=== PATIENT | female | born 1995 ===

== ENCOUNTER 2016-11-14 09:29 | Emergency (ER) | payer BC ==
[2016-11-14 10:11] VITALS: BMI 22.6
[2016-11-14 10:13] VITALS: BP 125/47; PULSE 90; RESP 18; TEMP 98; O2SAT 100
--- NOTE | 2016-11-14 10:55 | ED PDOC ---
Upper Extremity Pain/Injury Time Seen by Provider: 11/14/16 10:20 Chief Complaint (Nursing): Finger,Hand,&Wrist Chief Complaint (Provider): R 4th finger pain History Per: Patient Additional Complaint(s): pt c/o R 4th finger pain on waking this morning. states she went to bed w/o pain. denies fall or injury. c/o numbness, tingling, decreased ROM. Past Medical History Reviewed: Historical Data, Nursing Documentation, Vital Signs Vital Signs: Last Vital Signs Temp 98.0 F 11/14/16 10:12 Pulse 90 11/14/16 10:12 Resp 18 11/14/16 10:12 BP 125/47 L 11/14/16 10:12 Pulse Ox 100 11/14/16 10:12 - Medical History PMH: Anemia - Surgical History Surgical History: - Family History Family History: States: No Known Family Hx - Living Arrangements Living Arrangements: With Family - Social History Current smoker - smoking cessation education provided: No Alcohol: None Drugs: Denies - Immunization History Hx Tetanus Toxoid Vaccination: No Hx Influenza Vaccination: No Hx Pneumococcal Vaccination: No - Home Medications Home Medications: Ambulatory Orders Medication Instructions Recorded Ciprofloxacin/Ciprofloxa HCl 500 mg PO BID #14 ter 02/05/14 [Ciprofloxacin] Naproxen 375 mg PO Q8 PRN #15 tab 02/05/14 Ondansetron [Zofran] 4 mg PO Q8H #10 tab 02/05/14 oxyCODONE/Acetaminophen [Percocet 1 ea PO Q6 #10 tab 02/05/14 5/325 mg Tab] Cyclobenzaprine [Cyclobenzaprine 10 mg PO TID #20 tab 09/26/15 HCl] Ibuprofen [Motrin] 600 mg PO Q6 #20 tab 09/26/15 Oxycodone HCl/Acetaminophen 1 tab PO Q4 #15 tab 09/26/15 [Percocet 325 mg-5 mg] - Allergies Allergies/Adverse Reactions: Allergies Allergy/AdvReac Type Severity Reaction Status Date / Time avocado Allergy SWELLING Verified 11/14/16 10:22 peanut Allergy SWELLING Verified 11/14/16 10:22 shellfish derived Allergy SWELLING Verified 11/14/16 10:22 fruits Allergy SWELLING Uncoded 09/26/15 15:02 vegetables Allergy SWELLING Uncoded 09/26/15 15:02 Review of Systems ROS Statement: Except As Marked, All Systems Reviewed And Found Negative Musculoskeletal: Positive for: Hand Pain Physical Exam - Reviewed Nursing Documentation Reviewed: Yes Vital Signs Reviewed: Yes - Physical Exam Appears: Positive for: Well, Non-toxic, No Acute Distress Skin: Positive for: Normal Color, Warm, DRY Neck: Positive for: Normal, Painless ROM Cardiovascular/Chest: Positive for: Regular Rate, Rhythm Respiratory: Positive for: CNT, Normal Breath Sounds Gastrointestinal/Abdominal: Positive for: Normal Exam, Bowel Sounds, Soft. Negative for: Tenderness Extremity: Positive for: Other (R hand tender 4th MCP, PIP w/o edema, echymosis , deformity. limited ROM digits 2-4 per pain. cap refill <2s.) Neurologic/Psych: Positive for: Alert, Oriented, Motor/Sensory Deficits ( decreased sensation to light touch and weakness to digits 2-5.) - ECG O2 Sat by Pulse Oximetry: 100 Medical Decision Making Medical Decision Making: R hand xray shows ? fx 4th proximal phalanx distally. will splint, refer to ortho. Disposition - Clinical Impression Clinical Impression: Finger fracture, right - Patient ED Disposition Is Patient to be Admitted: No - Disposition Referrals: Ranulfo Whittington III, MD [Staff Provider] - Disposition: Routine/Home Disposition Time: 12:08 Condition: GOOD Instructions: Finger Fracture (ED)
--- NOTE | 2016-11-14 15:29 | RAD ---
HISTORY: R 4th finger pain COMPARISON: No prior FINDINGS: BONES: Normal. No fracture. JOINTS: Normal. No osteoarthritis. SOFT TISSUE: Normal. OTHER FINDINGS: None . IMPRESSION: Normal Bone Xray.
== END 2016-11-14 12:40 | disposition home or self-care (01) ==
LOC: H.ER 09:29
DX: S63.634A Sprain of interphalangeal joint of right ring finger, initial encounter (principal); X50.9XXA Other and unspecified overexertion or strenuous movements or postures, initial encounter; Y92.008 Other place in unspecified non-institutional (private) residence as the place of occurrence of the external cause

== ENCOUNTER 2016-11-24 08:48 | Emergency (ER) | payer BC ==
[2016-11-24 08:49] VITALS: BMI 22.6
[2016-11-24 08:54] VITALS: BP 103/71; PULSE 95; RESP 18; TEMP 98.3; O2SAT 100
[2016-11-24] MEDS ORDERED: Tmp-Smz 800 mg-160 mg DS Tab PO STA (09:38)
--- NOTE | 2016-11-24 09:42 | ED PDOC ---
HPI: Female Pain Time Seen by Provider: 11/24/16 09:19 Chief Complaint (Nursing): Female Genitourinary History Per: Patient History/Exam Limitations: no limitations Onset/Duration Of Symptoms: Days (3), Gradual, Persistent Current Symptoms Are (Timing): Still Present Severity: Moderate Quality Of Discomfort: Burning, Pressure Associated Symptoms: Urinary Symptoms (burning and increased frequency). denies : Fever, Chills, Nausea, Vomiting, Diarrhea, Loss Of Appetite, Back Pain Alleviating Factors: None Past Medical History Reviewed: Historical Data, Nursing Documentation, Vital Signs Vital Signs: Last Vital Signs Temp 98.3 F 11/24/16 08:53 Pulse 95 H 11/24/16 08:53 Resp 18 11/24/16 08:53 BP 103/71 11/24/16 08:53 Pulse Ox 100 11/24/16 08:53 - Medical History PMH: Anemia Other PMH: UTI - Surgical History Surgical History: - Family History Family History: States: Unknown Family Hx - Living Arrangements Living Arrangements: With Family - Immunization History Hx Tetanus Toxoid Vaccination: No Hx Influenza Vaccination: No Hx Pneumococcal Vaccination: No - Home Medications Home Medications: Ambulatory Orders Medication Instructions Recorded Ciprofloxacin/Ciprofloxa HCl 500 mg PO BID #14 ter 02/05/14 [Ciprofloxacin] Naproxen 375 mg PO Q8 PRN #15 tab 02/05/14 Ondansetron [Zofran] 4 mg PO Q8H #10 tab 02/05/14 oxyCODONE/Acetaminophen [Percocet 1 ea PO Q6 #10 tab 02/05/14 5/325 mg Tab] Cyclobenzaprine [Cyclobenzaprine 10 mg PO TID #20 tab 09/26/15 HCl] Ibuprofen [Motrin] 600 mg PO Q6 #20 tab 09/26/15 Oxycodone HCl/Acetaminophen 1 tab PO Q4 #15 tab 09/26/15 [Percocet 325 mg-5 mg] Phenazopyridine [Pyridium] 200 mg PO TID #9 tab 11/24/16 Sulfamethoxazole/Trimethoprim 1 tab PO BID #14 tab 11/24/16 [Bactrim DS 800 mg-160 mg] - Allergies Allergies/Adverse Reactions: Allergies Allergy/AdvReac Type Severity Reaction Status Date / Time avocado Allergy SWELLING Verified 11/14/16 10:22 peanut Allergy SWELLING Verified 11/14/16 10:22 shellfish derived Allergy SWELLING Verified 11/14/16 10:22 fruits Allergy SWELLING Uncoded 09/26/15 15:02 vegetables Allergy SWELLING Uncoded 09/26/15 15:02 Review of Systems ROS Statement: Except As Marked, All Systems Reviewed And Found Negative Constitutional: Negative for: Fever, Chills Gastrointestinal: Negative for: Nausea, Vomiting Genitourinary Female: Positive for: Dysuria, Frequency. Negative for: Hematuria , Vaginal Discharge Musculoskeletal: Negative for: Neck Pain Physical Exam - Reviewed Nursing Documentation Reviewed: Yes Vital Signs Reviewed: Yes - Physical Exam Appears: Positive for: Well, Non-toxic, No Acute Distress Head Exam: Positive for: ATRAUMATIC, NORMAL INSPECTION, NORMOCEPHALIC Skin: Positive for: Normal Color, Warm, DRY Eye Exam: Positive for: EOMI, Normal appearance, PERRL ENT: Positive for: Normal ENT Inspection Neck: Positive for: Normal, Painless ROM Cardiovascular/Chest: Positive for: Regular Rate, Rhythm Respiratory: Positive for: CNT, Normal Breath Sounds Gastrointestinal/Abdominal: Positive for: Normal Exam, Bowel Sounds, Soft. Negative for: Tenderness Back: Positive for: Normal Inspection. Negative for: L CVA Tenderness, R CVA Tenderness, Vertebral Tenderness, Decreased ROM Extremity: Positive for: Normal ROM Neurologic/Psych: Positive for: Alert, Oriented - Laboratory Results Urine dip results: Positive for: Leukocyte Esterase (cloudy appearing), Blood, Nitrate - ECG O2 Sat by Pulse Oximetry: 100 Disposition - Clinical Impression Clinical Impression: Urinary tract infection - Patient ED Disposition Is Patient to be Admitted: No Doctor Will See Patient In The: Office Counseled Patient/Family Regarding: Diagnosis, Need For Followup, Rx Given - Disposition Referrals: Osbaldo Boyd MD [Primary Care Provider] - Disposition: Routine/Home Disposition Time: 09:42 Condition: STABLE Prescriptions: Phenazopyridine [Pyridium] 200 mg PO TID #9 tab Sulfamethoxazole/Trimethoprim [Bactrim DS 800 mg-160 mg] 1 tab PO BID #14 tab Instructions: Urinary Tract Infection in Women (ED) - POA Present On Arrival: None
== END 2016-11-24 10:03 | disposition home or self-care (01) ==
LOC: SUPCPDRO 08:48 → H.ER 08:48
DX: N39.0 Urinary tract infection, site not specified (principal)